=== PATIENT | female | born 1935 | race Two or more races ===

== ENCOUNTER 2020-10-27 14:42 | Emergency (ER) | payer MEDICARE ==
[~2020-10-27] VITALS: Ht 157.5 cm; Wt 58.1 kg
[~2020-10-27 14:42] MED LIST: Z.0.HUMULIN R100 UNI SC; Z.0.LIBRAX CAPSULE1 PO; Z.0.LIPITOR20 MG PO
[2020-10-27 15:52] LABS: CLARITY,URINE CLEAR (CLEAR); COLOR,URINE YELLOW (YELLOW); KETONES,URINE NEGATIVE (NEGATIVE); LEUKOCYTE ESTERASE ,URINE NEGATIVE (NEGATIVE); NITRITE,URINE POSITIVE (NEGATIVE); PROTEIN,URINE DIPSTICK 1+ (NEGATIVE); URINE UROBILINOGEN 0.2 mg/dL (0.2 - 1)
[2020-10-27] MEDS ORDERED: PYRIDIUM100 MG PO (16:00)
[2020-10-27] MEDS ORDERED: BACTRIM DS TAB1 EACH PO (16:00)
[2020-10-27 16:02] LABS: RBC,URINE 0-5 /HPF (0-5); WBC,URINE (MAN) 0-5 /HPF (0-5)
[2020-10-27 16:03] LABS: BACTERIA,URINE FEW /HPF; EPITHELIAL CELLS,URINE FEW /LPF
== END 2020-10-27 16:40 | disposition home or self-care (01) ==
LOC: ER 15:29
DX: N39.0 Urinary tract infection, site not specified (principal); M54.5 Low back pain; I10 Essential (primary) hypertension
CPT/HCPCS: 81001; 87086; 99283

== ENCOUNTER → 2021-10-14 | Emergency (ER) | payer MEDICARE ==
[~2021-10-14] VITALS: Ht 157.5 cm; Wt 58.1 kg
[~2021-10-14] MED LIST changes: +BACTRIM DS TAB1 EACH PO; +CASIRIVIMAB/IMDEVIMAB 10 ML in SODIUM CHLORIDE 0.9% 100 ML IV ONE; +PYRIDIUM100 MG PO; +TESSALON PERLE100 MG PO
== END | disposition home or self-care (01) ==
LOC: ER 20:48
DX: U07.1 COVID-19 (principal); I10 Essential (primary) hypertension; Z79.4 Long term (current) use of insulin
CPT/HCPCS: J7050